=== PATIENT | male | born 1950 | race Caucasian/White ===

== ENCOUNTER 2016-10-08 11:44 | Observation (INO) | payer MEDICARE, OTHER ==
[~2016-10-08] VITALS: Ht 170.2 cm; Wt 78.4 kg
--- NOTE | ~2016-10-08 | HP ---
PATIENT'S NAME: CHUNG GUTIÉRREZ [facility] AGE: 66 Y [address] ROOM: [place] [address] LOCATION: GPCU ADMIT DATE: 10/08/2016 History & Physical DISCHARGE DATE: FAMILY PHYSICIAN: Asif Ingram MD ATTENDING PHYSICIAN: Asif Ingram DATE OF SERVICE: CHIEF COMPLAINT: Chest pain and "episode." HISTORY OF PRESENT ILLNESS: The patient is a 66-year-old gentleman, who was brought in by rescue unit after having an "episode at home." The patient states that he remembers cleaning out an area where they were going to get a new deep freeze tomorrow. States that he did not feel well and maybe a little bit of pain and just tired, so went to sit down and that is the last thing that he remembers. Per rescue unit and emergency room physicians, stated that he was unresponsive, had difficulty with speech, and his tongue protruded. Sounds like he was pretty unresponsive during this period of time. I am unaware of how many minutes that this took place. The emergency room physician stated that within 5 minutes of being in the emergency room, that all weakness, speech difficulty, and tongue abnormality totally resolved, and he was "100% normal thing" within 5 minutes. Since that time, he has not had any neurological abnormalities. States that he did have chest pressure, did have elevated blood pressure, that did respond nicely to nitroglycerin. The patient denies any headache or any residual symptoms. No loss of bladder. No tonic-clonic symptoms during any of this was witnessed. PAST MEDICAL HISTORY: Significant for: 1. Coronary artery disease, recently had stents placed by Dr. Guthrie 2 weeks ago. Has not had any chest pain until today since the stent placement. 2. Does have a history of chronic migraines with a questionable seizure disorder associated with this, but the patient really unable to explain. 3. Chronic neck pain. 4. Depression. 5. Erosive gastritis. 6. Reflux. 7. History of pancreatitis. 8. Mixed hyperlipidemia. 9. Ischemic vascular disease. 10. Type 2 diabetes. PAST SURGICAL HISTORY: PATIENT'S NAME: CHUNG GUTIÉRREZ [facility] AGE: 66 Y [address] ROOM: [place] [address] LOCATION: GPCU ADMIT DATE: 10/08/2016 History & Physical DISCHARGE DATE: FAMILY PHYSICIAN: Asif Ingram MD ATTENDING PHYSICIAN: Asif Ingram Includes appendectomy in 1987; cholecystectomy in 2005; EGD, last EGD showed erosive gastritis with focal duodenitis on September 05, 2015; hernia repair on December 14, 2014; left inguinal; and recent stent placement. SOCIAL HISTORY: Occasional alcohol, current caffeine, and former smoker. He is . CURRENT MEDICATIONS: 1. Aspirin 81 mg daily. 2. Lipitor 80 mg daily. 3. Lotensin 40 mg daily. 4. Coreg 6.25 mg twice daily. 5. Plavix 75 mg daily. 6. Neurontin 300 mg twice daily and 600 mg at bedtime. 7. [place] 10/325 two tablets at night time. 8. Levemir 45 units q.h.s. 9. Isordil 5 mg t.i.d. 10. Nitrostat p.r.n. 11. Protonix 40 mg daily. 12. Ambien 10 mg q.h.s. FAMILY HISTORY: Significant for hyperlipidemia and hypertension. REVIEW OF SYSTEMS: GENERAL: No recent weight loss or weight gain. No fevers. HEENT: Negative. Does wear glasses. Does have dentures. CARDIOVASCULAR: Did have the chest pressure, currently symptom free. PULMONARY: No shortness of breath. GI: No diarrhea, constipation, melena, or hematochezia. MUSCULOSKELETAL: Currently negative. PHYSICAL EXAMINATION: VITAL SIGNS: Temperature 97.9, respirations 16, O2 saturation 96% on room air, blood pressure 129/63, heart rate of 54. GENERAL: An alert male, in no acute distress. HEENT: Within normal limits. Mouth, moist mucous membranes. NECK: Supple with no lymphadenopathy. HEART: Regular rate and rhythm. LUNGS: Clear to auscultation bilaterally. ABDOMEN: Positive bowel sounds. Soft, nontender, nondistended. No masses present. MUSCULOSKELETAL: Negative. Neurovascularly is intact. Has no muscle weakness. No abnormalities. PATIENT'S NAME: CHUNG GUTIÉRREZ [facility] AGE: 66 Y [address] ROOM: [place] [address] LOCATION: GPCU ADMIT DATE: 10/08/2016 History & Physical DISCHARGE DATE: FAMILY PHYSICIAN: Asif Ingram MD ATTENDING PHYSICIAN: Asif Ingram LABORATORY DATA: EKG showed a normal sinus rhythm with no acute changes noted. CBC: White count of 6600, hemoglobin of 11.7. CMS: Glucose of 355, BUN 15, creatinine of 1.0, rest is stable. Cardiac enzymes are negative x2. ProBNP is 66. CRP is less than 0.29. TSH 4.050 and free T4 is normal at 0.80. Procalcitonin is negative. IMAGING DATA: Head CT was done, which showed no acute findings. No arterial lesion or stenosis. Chest x-ray was normal. ASSESSMENT: 1. Chest pressure with recent stent placement, unknown coronary artery disease. 2. Questionable "episode" unsure if this could be a seizure related to his migraine. Dr. Osorio was involved as they initially thought this was a stroke alert. He did not feel that it was stroke related or any concerns of stroke nor did Dr. Osorio feel that this was potential seizure. 3. Diabetes. Blood sugar was elevated at admission. We will continue with the Levemir as well as sliding scale. 4. Bradycardia. This will be monitored. The patient is on telemetry. Dr. Ingram to assume care tomorrow. MD EBONIE DAVISON/preml /[id number] D: [id number] T: [id number] HISTORY & PHYSICAL
--- NOTE | ~2016-10-08 | CATH ---
Cardiac Diagnostic + PCI Report Demographics Patient Name MARLA Lee Gender Male Date of 1950 Age 66 year(s) Patient Number [id number] Date of Study 10/09/2016 Visit Number [id number] Room Number G[address] [place] [id number] Ht 170.18 cm Wt 81.6 kg Referring Juan Jose Conner MD Primary Physician Physician Performing Efstratiou Secondary Physician Physician Fer Conner MD Diagnostic Efstratiou Assisting Physician Physician Fer Conner MD Interventional Efstratiou Physician Mold Maker [employer] Molds Physician Fer Conner MD Findings and Conclusions Diagnostic Findings and Conclusion Diffuse 3 vessel CAD Recent stent in proximal LAD is patent Severe distal stenosis of same vessel Diagnostic Recommendations PCI to distal LAD Interventional Findings and Conclusion successful [place] to distal LAD Interventional Recommendations DAPT risk factor optimization Procedure Description The patient was brought to the diagnostic cardiac catheterization-EP laboratory in the fasting, non-sedated state. Informed consent was obtained in the written and verbal form after the risks and benefits were explained. The patient had no further questions and agreed to proceed. The planned puncture-incision site(s) were shaved and prepped with ChloraPrep and draped in the usual sterile manner. Conscious sedation, supplemental oxygen, and pain control medications were delivered by a registered nurse under physician guidance. Surface ECG rhythm, blood pressure measurement, and pulse oximetry were monitored throughout the procedure. Arterial access. The access site was infiltrated with lidocaine. The vessel was entered with the Seldinger technique. A sheath was advanced into the vessel and used for catheter placement. Selective left coronary angiography. A catheter was advanced into the left coronary vessel ostium under Fluoroscopic guidance. Contrast was injected by hand. Images were obtained in multiple projections. Selective right coronary angiography. A catheter was advanced into the right coronary vessel ostium under fluoroscopic guidance. Contrast was injected by hand. Images were obtained in multiple projections. FFR measurement was performed. The vessel was entered with a guiding catheter. The FFR wire was normalized and then advanced across the lesion. Maximum hyperemia was achieved using adenosine. Stent Placement: A guiding catheter was used to intubate the vessel. A 0.14 wire was used to cross the lesion. A Drug Eluting Stent was placed. Post placement angiograms were performed. Arterial artery hemostasis was achieved. The patient was transferred to a regular nursing floor via cart accompanied by a nurse. The patient left the laboratory in stable condition. Diagnostic Cath Status: Urgent Interventional Cath Status: Urgent Procedure Procedure Type Diagnostic procedure:Angiography:, Coronary Angios PCI procedure:Drug Eluting Coronary Stent:, LAD, Additional Imaging:, FFR/iFR:, Initial Vessel Indications: Chest pain and Abnormal enzymes. The procedure was explained in detail to the patient. Risks, complications and alternative treatments were reviewed. Written consent was obtained. Medications Reviewed with Patient prior to Procedure. Angiographic Findings Dominance: Right Cardiac Arteries and Lesion Findings LMCA: Normal (0% Stenosis). LAD: Abnormal.40% ostial LAD, FFR 0.81, prox stent patent Diag 1 and 2 stent jailed Distal 80% FFR 0.64There is a previous stent on Prox LAD Proximal subsection showing wide patency. There is a previous stent on Mid LAD Mid subsection showing wide patency. Lesion on Prox LAD: Ostial.40% stenosis . Pre procedure MALCOLM III flow was noted. Devices used - Verrata Pressure Wire. Number of passes: 1. Lesion on Dist LAD: Distal subsection.80% stenosis 16 mm length reduced to 0%. Pre procedure MALCOLM II flow was noted. Post Procedure MALCOLM III flow was present. The guidewire cross was successful.A poor run off was present.The lesion was diagnosed as a moderate risk lesion.Culprit lesion. Devices used - Emerge Balloon 2.0 x 12. 1 inflation(s) to a max pressure of: 14 dashawn. - Promus Premier 2.25 x 16 Stent. 1 inflation(s) to a max pressure of: 11 dashawn. - NC Emerge Balloon 2.5 x 8. 1 inflation(s) to a max pressure of: 16 dashawn. LCx: Abnormal.25% ostial OM 40% prox Lesion on Prox CX: Ostial.25% stenosis . Lesion on 1st Ob Dipti: Proximal subsection.40% stenosis . RCA: Abnormal.mid stent 30% PL 20% PDA 30% ostialThere is a previous stent on Mid RCA Mid subsection showing diffuse ISR. Lesion on Mid RCA: Mid subsection.30% stenosis . Lesion on 1st RPL: Ostial.20% stenosis . Lesion on R PDA: Ostial.30% stenosis . Coronary Tree Procedure Data Procedure Date Date: 10/09/2016Start: 02:38 PMEnd: 03:39 PM Entry Locations - Retrograde Percutaneous access was performed through the Right Radial artery (Primary location). A 6 Fr sheath was inserted. Closure Comments: 15 cc air in r band by julianna. Procedure Medications Order and Administration + + + + + !Time !Medication !Dosage !Route ! + + + + + !10/09/2016 02:35 PM !Versed !1 mg !I.V. ! + + + + + !10/09/2016 02:37 PM !Fentanyl !50 mcg !I.V. ! + + + + + !10/09/2016 02:40 PM !Oxygen !2 l/min !NC ! + + + + + !10/09/2016 02:40 PM !Fentanyl !50 mcg !I.V. ! + + + + + !10/09/2016 02:41 PM !Radial Heparin (ACC_3) !5000 units !I.A. ! + + + + + !10/09/2016 02:41 PM !Radial Nitroglycerin !200 mcg !I.A. ! + + + + + !10/09/2016 02:41 PM !Radial Verapamil !1.5 mg !I.A. ! + + + + + !10/09/2016 02:46 PM !Oxygen !4 l/min !NC ! + + + + + !10/09/2016 02:49 PM !Oxygen !6 l/min !NC ! + + + + + !10/09/2016 03:00 PM !Heparin (ACC_3) !3000 units !I.V. bolus ! + + + + + !10/09/2016 03:05 PM !Adenosine (IV) !140 mcg/kg/min !I.V. drip ! + + + + + !10/09/2016 03:12 PM !Adenosine (IV) ! !I.V. drip ! + + + + + !10/09/2016 03:22 PM !Nitroglycerin !300 mcg !I.C. ! + + + + + Devices Used - A6 Fr. BS JR 4 Diag. Catheterwas used for:Right coronary angiography. - A6 Fr. BS JL 3.5 Diag. Catheterwas used for:Left coronary angiography. - A6 Fr. XBLAD 3.5 Guide Catheterwas used for:LAD Intervention. Contrast Material - Isovue 299261 ml Fluoroscopy Time: Diagnostic: 9:30 minutes. Total: 9:30 minutes. Fluoroscopy Dose: Diagnostic: 1395 mGy. Total: 1395 mGy. Estimated Blood Loss: 30 ml. Additional [facility] PCI Information PCI Indication:PCI for high risk Non-STEMI or unstable angina. Medical History Allergies - No known allergies. Risk Factors The patient risk factors include:prior PCI on 09/25/2019;peripheral arterial disease, physical activity, treated hypercholesterolemia, treated hypertension, family history of premature CAD, insulin-treated diabetes mellitus, last creatinine: 1 mg/dl, creatinine clearance: 85 ml/min, dyslipidemia and former tobacco use. Admission Data Admission Date: 10/08/2016 Admission Time: 02:49 PM Admit Source: Emergency department Insurance Payors: Medicare. Admission Medications + +------+------+---------+ + + + !Medication !Dosage!Times !Last !Last !Administered !Comments ! ! ! !Per !Delivery !Delivery ! ! ! ! ! !Day !Date !Time ! ! ! + +------+------+---------+ + + + !Aspirin (any)! ! ! ! !Yes ! ! + +------+------+---------+ + + + !Statin (any) ! ! ! ! !Yes ! ! + +------+------+---------+ + + + !Beta Evelyn ! ! ! ! !Yes ! ! !(any) ! ! ! ! ! ! ! + +------+------+---------+ + + + !Clopidogrel ! ! ! ! !Yes ! ! + +------+------+---------+ + + + !PAVEL Inhibitor! ! ! ! ! ! ! !(any) ! ! ! ! ! ! ! + +------+------+---------+ + + + !Nitrates (iv ! ! ! ! ! ! ! !or buccal) ! ! ! ! ! ! ! + +------+------+---------+ + + + Clinical Evaluation Leading to Procedure - The patient's CAD presentation was assessed as: Unstable angina. - The patient's anginal syndrome during the past two weeks was assessed as: Class IV according to the [place] Cardiovascular Society Classification System (CCS). Anti-anginal medications were prescribed during the past two weeks. The medications are: Beta Blockers and Long Acting Nitrates. - The patient's CAD presentation was assessed as: Unstable angina. - The patient's anginal syndrome during the past two weeks was assessed as: Class IV according to the [place] Cardiovascular Society Classification System (CCS). Anti-anginal medications were prescribed during the past two weeks. The medications are: Beta Blockers and Long Acting Nitrates. VA LV function assessed as:Normal. Ejection Fraction - 09/22/2016 - Method: LV gram. EF%: 55. LVA Segment Contractility 1 - Normal 3 - Mild 5 - Severe 7 - Dyskinesis hypokinesis hypokinesis 2 - 4 - Moderate 6 - Akinesis 8 - Aneurysm Hypokinesis hypokinesis Snapshots Hemodynamics Condition: Rest O2 Consumption: Estimated: 212.91Heart Rate: 53 bpm Pressures (mmHg) +-----+ + !Site !Pressure ! +-----+ + !AO !118/67 (90) ! +-----+ + !AO !155/74 (108) ! +-----+ + Shunts Oxygen Values O2 Capacity 159.12 O2 Consumption 212.91 Discharge Data Discharge Date: 10/10/2016 Hospital Status: Inpatient Signatures dtt: Manjinder Mendoza dtd: 10/09/16 1438 Physician Self Edit
--- NOTE | ~2016-10-08 | ER ---
PATIENT'S NAME: CHUNG GUITÉRREZ [facility] AGE: 66 Y [address] ROOM: [place] [address] LOCATION: GPCU ADMIT DATE: 10/08/2016 ER/Outpatient Report DISCHARGE DATE: FAMILY PHYSICIAN: Asif Ingram MD ATTENDING PHYSICIAN: Asif Ingram CHIEF COMPLAINT: Unresponsive episode. HISTORY OF PRESENT ILLNESS: The patient arrives by EMS. EMS was contacted to evaluate the patient at home after he was found unresponsive. Last known normal at 7:00 a.m. The patient was supposedly unresponsive and barely breathing for first responders. He began to become more responsive with some stimulation. He was evaluated by our paramedics en route and was continuing to improve, but had no purposeful movement and withdrawal from pain. They were concerned for a stroke and brought him here. He recently had a stent placed by Dr. Lozano at [facility]; however, because of the concern for stroke, they diverted here for further evaluation. The patient's primary care is Dr. Huizar. He is otherwise without any other issues per EMS. He does have anticoagulation on board for his recent stent. Report, he did take some nitroglycerin for chest discomfort this morning, which he has not had for a while according to family. No other acute issues. The exact time of onset is unknown. PAST MEDICAL HISTORY: As documented on the record and have been reviewed by me. SOCIAL HISTORY: As documented on the record and have been reviewed by me. MEDICATIONS: As documented on the record and have been reviewed by me. ALLERGIES: DOCUMENTED ON THE RECORD AND HAVE BEEN REVIEWED BY ME. REVIEW OF SYSTEMS: All systems reviewed and negative except as noted in the HPI. PHYSICAL EXAMINATION: VITAL SIGNS: Blood pressure 194/82, pulse is 60, respiratory rate is 16, temperature 97.2, SpO2 is 98% on 2 L nasal cannula, weight is 82.7 kilos. Pain is unclear. The patient does have a grimace. NEURO: The patient is obtunded and not verbal. He attempts to open his eyes, but cannot do so and cannot control his eye movements. The tongue is PATIENT'S NAME: CHUNG GUTIÉRREZ [facility] AGE: 66 Y [address] ROOM: [place] [address] LOCATION: GPCU ADMIT DATE: 10/08/2016 ER/Outpatient Report DISCHARGE DATE: FAMILY PHYSICIAN: Asif Ingram MD ATTENDING PHYSICIAN: Asif Ingram protruding from the mouth, but is not edematous. He does attempt to verbalize, but is garbled. He will squeeze hands and give thumbs up on both sides. He has no pronator drift and endorses normal sensation bilateral. He has symmetric strength of the lower extremities and there is no drift as well. I could not demonstrate rapid alternating movements for him initially. There was no tonic-clonic like motion activity appreciated. The eyes were deviated up into the left, but he would try to move them back to center, but it was difficult for him. No obvious asymmetry and the protuberant tongue was not deviated. HEENT: Normocephalic and atraumatic. Eyes: Pupils were minimally reactive and 3 mm bilateral. Extraocular movements were difficult to elicit. The oropharynx is dry. The tongue is protuberant, but not edematous. There is no stridor. NECK: Supple. The trachea is midline. CHEST: Heart is regular rate and rhythm with no obvious murmurs. LUNGS: Grossly clear to auscultation throughout. BACK: Nontender to palpation. EXTREMITIES: Warm and well perfused with no deformities or edema. SKIN: Warm, dry, and intact. LABORATORY DATA AND X-RAYS: CT and CTA of the head were unremarkable per Radiology. EKG is concerning for possible prior ischemia with Q-waves in lead III, and not in contiguous leads with no evidence of acute ischemia. There is slight ST-segment elevation in the precordial leads, V2 and V3, measuring 1 cm, but does not meet criteria. No comparison available. Unchanged on prior EKG. Accu-Chek is 349. Initial troponin is below threshold, repeat is as well. CK-MB on repeat is 1.5, CPK is 130. WBCs are 6.6, hemoglobin 11.7, and platelets of 240. INR is 1.0, procalcitonin is below threshold. Sodium is 140, potassium 4.4, chloride 109, CO2 is 22, BUN is 15, creatinine 1.0. GFR is greater than 60. LFTs unremarkable. CPK 139, CK-MB is 1.7. CRP is below threshold. Free T4 is 0.8. TSH is 4.05. ProBNP is 66. Calculated anion gap is 9. Serum phosphorus is 2.4. IMPRESSION: 1. Unresponsive episode, unclear etiology. 2. Persistent chest pain, status post stenting. EMERGENCY DEPARTMENT COURSE: The patient was evaluated as above. Stroke alert was called based on field report. Dr. Osorio, neurologist, evaluated the patient based on his current presentation, rapid improvement, and in fact, complete return to baseline with no other neurologic symptoms. I do not think this is a stroke or seizure. His time course does not fit either of them. Unsure as to the exact etiology. The patient did continue to have chest pain. He was given nitroglycerin with PATIENT'S NAME: CHUNG GUTIÉRREZ [facility] AGE: 66 Y [address] ROOM: [address] [place], [place] [id number] LOCATION: GPCU ADMIT DATE: 10/08/2016 ER/Outpatient Report DISCHARGE DATE: FAMILY PHYSICIAN: Asif Ingram MD ATTENDING PHYSICIAN: Asif Ingram A marked improvement in his blood pressures. He remained otherwise stable. He did continue to have chest pain and was hesitant to take more nitroglycerin, but with his active chest pain and recent stenting, I am concerned regarding his safety for discharge. I have contacted Dr. Mendoza, correctional supervisor, and we will bring him in for observation. Contacted Dr. Huizar, the admitting physician, for the patient's primary care physician. He will be brought into the hospital for observation and chest pain rule out in the setting of this unusual neurologic episode that, I believe, is probably related to stress. He has otherwise been stable in the emergency department and has, in fact, returned completely to his baseline with no neurologic symptoms, no speech impediments, clear presentation, but he does not have a recall of the events that happened previously. MD KEISHA WINTERS/su /[id number] d: 10/08/16 2321 t: 03/06/17 1054, OUTPATIENT REPORT
--- NOTE | ~2016-10-08 | CON ---
PATIENT'S NAME: CHUNG GUTIÉRREZ [facility] AGE: 66 Y [address] ROOM: [id number] [place], [place] [address] LOCATION: GPCU ADMIT DATE: 10/08/2016 Consultation DISCHARGE DATE: 10/10/2016 FAMILY PHYSICIAN: Asif Ingram MD ATTENDING PHYSICIAN: Asif Ingram DATE OF CONSULTATION: 10/09/2016 REFERRING PHYSICIAN: Manjinder Mendoza MD REASON FOR CARDIOLOGY CONSULT: Chest pain. HISTORY OF PRESENT ILLNESS: This is a 66-year-old male admitted with an unresponsive episode in which he had difficulty with speech. He was transferred to the [facility] by Ambulance service and he continued to be unresponsive for a short time, but then quickly returned to a baseline with normal neurologic function. Upon questioning of the patient, he admits around the episode, he did have some familiar chest pain. He last experienced chest pain of this type prior to stent placement about [address] Guthrie. At the time of this consult, he is resting comfortably in bed, eating breakfast, and is pain free. Overall, he is disoriented to the actual events surrounding his unresponsive episode. But overall, he denies any recent changes to his health over the last two weeks, status post stent. He also denies headache, dizziness, nausea, vomiting, diarrhea or palpitations. EMS noted there was no notation of tonic-colonic muscle movement or loss of bowel or bladder during the episode. PAST MEDICAL HISTORY: 1. Coronary artery disease with 2 previous stents placed about 7 years ago to his RCA and LAD and most recently, had another LAD stent placed about [address] Guthrie. 2. Hypertension. 3. Hyperlipidemia. 4. Chronic migraines. 5. Chronic neck pain. 6. Depression. 7. GERD and gastritis with a previous GI bleed. 8. History of pancreatitis. 9. Peripheral vascular disease. 10. Seizure disorder related to his migraines. 11. Diabetes mellitus type 2. PAST SURGICAL HISTORY: 1. Coronary artery stenting. PATIENT'S NAME: CHUNG GUTIÉRREZ [facility] AGE: 66 Y [address] ROOM: [id number] [place], [place] [address] LOCATION: GPCU ADMIT DATE: 10/08/2016 Consultation DISCHARGE DATE: 10/10/2016 FAMILY PHYSICIAN: Asif Ingram MD ATTENDING PHYSICIAN: Asif Ingram 2. Appendectomy. 3. Cholecystectomy. 4. EGD. 5. Left inguinal hernia repair. FAMILY HISTORY: The patient's father due to a myocardial infarction, but also had an unknown cancer. SOCIAL HISTORY: The patient is a former cigarette smoker. He smoked for a total of 35 years and quit smoking in the year 1999. He denies alcohol or illicit drug use. CURRENT MEDICATIONS: 1. Nitroglycerin IV as needed for chest pain. 2. Ambien 10 mg p.o. daily in the evening. 3. Aspirin 81 mg p.o. daily. 4. Coreg 6.25 mg p.o. twice daily. 5. Isordil 5 mg p.o. three times daily. 6. Lipitor 80 mg p.o. daily in the evening. 7. Lotensin 40 mg p.o. daily. 8. Neurontin 300 mg p.o. twice daily in the morning and at noon. 9. Neurontin 600 mg p.o. daily in the evening. 10. Plavix 75 mg p.o. daily. 11. Protonix 40 mg p.o. daily. 12. Levemir 45 units subcu daily in the evening. 13. NovoLog subcu on a mild sliding scale per a.c. and at bedtime Accu- Cheks. MEDICATION ALLERGIES: No known medication allergies. REVIEW OF SYSTEMS: Pertinent positive review of systems listed in the HPI. All other review of systems evaluated and negative. DIAGNOSTICS: CMS evaluation shows sodium of 140, potassium 4.4, BUN of 15, creatinine 1.0, glucose of 355. He has a proBNP of 66, a TSH of 4.05, and a free T4 of 0.8. He has a magnesium of 2.1. Lipid evaluation shows a total cholesterol of 138, triglycerides 193, HDL of 44 and an LDL of 56. Cardiac enzyme trend shows a CPK of 139, then 130, then 119, then 105. CK-MB of 1.7, then 1.5, then 1.5, and finally 1.0, and a troponin I of less than 0.04 x 5 values. PHYSICAL EXAMINATION: PATIENT'S NAME: CHUNG GUTIÉRREZ [facility] AGE: 66 Y [address] ROOM: [id number] [place], [place] [address] LOCATION: GPCU ADMIT DATE: 10/08/2016 Consultation DISCHARGE DATE: 10/10/2016 FAMILY PHYSICIAN: Asif Ingram MD ATTENDING PHYSICIAN: Asif Ingram VITAL SIGNS: Temperature 97.7, pulse 54, respirations 15, blood pressure 181/91, O2 saturation 96% on room air. The patient weighs 81.6 kg. SKIN: [place], warm, and dry. EYES: Sclerae clear. No xanthelasmas ENT: Oral mucosa is pink and moist. No jugular venous distention or carotid bruits. CHEST: Respirations are even and unlabored. Lungs are clear to auscultation. HEART: Regular rate and rhythm. Normal S1, S2. Does have intermittent S4 noted. ABDOMEN: Soft and nontender. MUSCULOSKELETAL: Gait is normal. EXTREMITIES: Peripheral pulses palpable. No clubbing or cyanosis noted. Does have trace lower extremity edema present. PSYCHIATRIC: Alert and oriented. Mood and affect are appropriate. IMPRESSION AND PLAN: Per Dr. Mendoza: 1. Chest pain of familiar quality as his previous events prior to stenting. He noted this during and after the episode of unresponsiveness. His cardiac enzymes are currently negative. Full review of his cardiac history from [facility] shows a history of 3 stents, the first being about 8 to 9 years ago and the last one being placed about 2 weeks ago with noted slow flow after the deployment. The patient will need a repeat coronary artery angiography for full evaluation of anatomy stent placement and coronary blood flow. 2. Unresponsiveness with tongue protrusion and difficult speech. Currently awaiting a Neurology evaluation as of this dictation. 3. Coronary artery disease with a history of stenting. Currently on guideline-directed medical therapy with aspirin, beta-shayla, and statin. He is also on long-acting nitrate. 4. Hypertension. We will continue his home medications and continue to monitor closely. 5. Diabetes mellitus. Thank you for this consult. We will continue to monitor, evaluate, and treat as appropriate. Thank you for allowing [facility] to interact in the care of this patient. MAGAN MICHAUDIN EFSTRATIOU, MD DEH/modl PATIENT'S NAME: CHUNG GUTIÉRREZ [facility] AGE: 66 Y [address] ROOM: [place] [address] LOCATION: GPCU ADMIT DATE: 10/08/2016 Consultation DISCHARGE DATE: 10/10/2016 FAMILY PHYSICIAN: Asif Ingram MD ATTENDING PHYSICIAN: Asif Ingram /[id number] d: 10/09/161954 t: 10/12/16 1431, CONSULTATION REPORT
[~2016-10-08 11:44] MED LIST changes: -NORVASC5 MG PO
[2016-10-08 12:19] LABS: BASOPHIL # 0.1 K/uL (0.0-0.2); BASOPHIL % 0.8 %; EOSINOPHIL # 0.4 K/uL (0.0-0.5); EOSINOPHIL % 6.4 %; HEMATOCRIT 35.8 % (37.0-53.0); HEMOGLOBIN 11.7 g/dL (11.0-16.0); IMMATURE GRANULOCYTE # 0.1 K/uL (0.0-0.3); IMMATURE GRANULOCYTE % 1.7 %; LYMPHOCYTE # 2.2 K/uL (0.8-4.0); MCHC 32.7 gm/dL (32.0-36.5); MONOCYTE # 0.7 K/uL (0.0-1.0); MONOCYTE % 11.1 %; MPV 8.8 fl (9.4-12.4); NRBC % 0 /100WBC (0-0.00); PLATELET COUNT 240 K/uL (150-450); RBC 3.77 M/uL (3.50-5.50); RDW-CV 12.7 % (11.9-14.6); WBC 6.6 K/uL (4.0-11.0)
[2016-10-08 12:26] LABS: PROTIME 9.9 SECONDS (9.6-11.1); PTT 25 SECONDS (25-32)
[2016-10-08 12:42] LABS: ALBUMIN 3.4 gm/dL (3.5-5.0); ALK PHOS 61 IU/L (33-138); ALT 14 IU/L (12-78); ANION GAP 13.4 (10.0-19.0); AST 10 IU/L (10-40); BLOOD UREA NITROGEN 15 mg/dL (6-24); CHLORIDE 109 mMol/L (96-110); CO2 22 mMol/L (22-32); CPK 139 IU/L (35-332); ESTIMATED GFR (MDRD EQUATION) > 60; POTASSIUM 4.4 mMol/L (3.7-5.1); SODIUM 140 mMol/L (135-145); TOTAL BILIRUBIN 0.3 mg/dL (0.0-1.5); TOTAL PROTEIN 6.4 g/dL (6.0-8.4)
[2016-10-08 14:08] LABS: CPK 130 IU/L (35-332)
[2016-10-08 17:22] LABS: MAGNESIUM 2.1 mg/dL (1.3-2.6)
--- NOTE | 2016-10-08 18:59 | NUR ---
PATIENT ADMITTED FROM ER AT 15:15 PER CART W/ ER NURSE. SBP 120'S, HR 50'S, SATS MID 90'S ON RA. PATIENT STATED NO C/O PAIN AT THAT TIME. NEURO ASSESSMENT BACK TO BASELINE FROM REPORT, PATIENT FOLLOWING ALL COMMANDS AND ANSWERING ORIENTATION QUESTIONS. KNEW MONTH AND YEAR, DID NOT REMEMBER DATE. DR Zayda LINDER NOTIFIED OF ADMISSION FOR ORDERS.
--- NOTE | 2016-10-08 19:01 | NUR ---
PATIENT ADMITTED FROM ER THIS AFTERNOON. DR Zayda LINDER ROUNDED. REPORT FROM E.R. NURSE THAT E.R. PHYSICIAN CONSULTED DR BARR. NITRO GTT STARTED AT 5 MICS PER [facility] PROTOCOL.
[2016-10-08 20:42] LABS: CPK 119 IU/L (35-332)
[2016-10-09 02:44] LABS: CPK 105 IU/L (35-332)
--- NOTE | 2016-10-09 04:33 | NUR ---
Significant Event: A/O x3, neuro checks all wnl, patient cannot remember episode that brought him into hospital, Nitro gtt at 5mcg/min for chest pain, has had no c/o pain since gtt started, SBP 120-150s, HR 50s, RA, patient slept all night, need UA Follow up: continue to monitor
[2016-10-09 06:44] LABS: BILIRUBIN URINE NEGATIVE (NEGATIVE); BLOOD URINE NEGATIVE /UL (NEGATIVE); COLOR URINE YELLOW (YELLOW); GLUCOSE URINE 1000 mg/dL (NEGATIVE); KETONE URINE NEGATIVE (NEGATIVE); LEUKOCYTES URINE NEGATIVE /UL (NEGATIVE); NITRITE URINE NEGATIVE (NEGATIVE); PROTEIN URINE NEGATIVE (NEGATIVE); SPEC GRAVITY URINE 1.015 (1.003-1.035); TURBIDITY URINE CLEAR (CLEAR); UROBILINOGEN URINE NORMAL (NORMAL)
[2016-10-09 08:44] LABS: CPK 112 IU/L (35-332)
[2016-10-09 11:07] LABS: CPK 107 IU/L (35-332)
--- NOTE | 2016-10-09 11:24 | NUR ---
Intoduced self and role of care management to patient. He lives with his in [place]. He states that he is able to do all his own ADL's. He states that his family assists as needed. He plans on returning home on discharge. He denies any needs at this time. Will continue to follow.
--- NOTE | 2016-10-09 15:05 | NUR ---
D:Patient left for mobile home laborer per bed with mobile home laborer RN's at 1420. Patient is alert and oreintated. Has voided. No change in assessment. Has Nitro infusing at 5 mcg/min. Has had no chest pain. Has been NPO since 0900.
[2016-10-09 17:03] LABS: CPK 107 IU/L (35-332)
--- NOTE | 2016-10-09 18:30 | NUR ---
D:Patient returned to unit at 1555. Had stent to distal LAD per right radial. Had R band to right wrist, 15 ml in it. Had small hematoma, remains slightly swollen and tender, but is soft. NS infusing at 100 ml/hr, and Nitro continues at 5 mcg/min. P:Monitor post stent, and remove R band
--- NOTE | 2016-10-09 18:40 | NUR ---
Significant Event:Patient had stent to distal LAD. Has had no chest pain. Right radial has R band to it, 15 ml air. Has NS infusing at 100 ml/hr and Nitro at 5 mcg.min. Patient returned to room at 1555. Follow up:Monitor post cath, home tomorrow
--- NOTE | 2016-10-10 04:15 | NUR ---
Significant Event: A/O, SBP 120-150s, Nitro gtt at 5mcg, HR 60s, RA, R) radial cath site remains slightly swollen but no changes since return from laboratory technician, r-band off at 2150, bandaid and coban to wrist, NS continues at 100 until for 1500mls, up SBA to bathroom, no c/o pain Follow up: home today?
[2016-10-10 04:52] LABS: ALBUMIN 2.9 gm/dL (3.5-5.0); ALK PHOS 54 IU/L (33-138); ALT 15 IU/L (12-78); AST 9 IU/L (10-40); BLOOD UREA NITROGEN 12 mg/dL (6-24); CALCIUM 7.6 mg/dL (8.5-10.5); CHLORIDE 112 mMol/L (96-110); CO2 21 mMol/L (22-32); CREATININE 0.7 mg/dL (0.6-1.3); ESTIMATED GFR (MDRD EQUATION) > 60; SODIUM 142 mMol/L (135-145); TOTAL PROTEIN 5.9 g/dL (6.0-8.4)
[2016-10-10 04:55] LABS: TOTAL BILIRUBIN 0.5 mg/dL (0.0-1.5)
[2016-10-10] MEDS ORDERED: NORVASC5 MG PO (09:59)
--- NOTE | 2016-10-10 13:38 | NUR ---
DISCHARGE: A/O X3. UP AD SNEHA. DENIES PAIN. RIGHT RADIAL SITE WITH PROXIMAL ECCHYMOSIS PRESENT, MARKED, NO CHANGE. SITE SOFT, SLIGHTLY TENDER. PIV'S X2 DISCONTINUED. FOLLOW-UP APPOINTMENT DISCUSSED. NEW MEDICATIONS AND MED CHANGES REVIEWED. DISCHARGE INSTRUCTIONS R/T NEW MEDS, DIET CHANGES AND RADIAL SITE CARE REVIEWED AND SENT WITH PATIENT. NO FURTHER QUESTIONS. TAKEN TO [facility] BY WHEELCHAIR. PT'S DAUGHTER HERE TO TRANSPORT HIM HOME. DISCHARGE @ 1230.
== END 2016-10-10 12:30 | disposition disaster alternative care site (69) ==
LOC: GMED 11:44 → GPCU 14:49
PROVIDERS: Emergency Medicine; Family Medicine; Internal Medicine Cardiovascular Disease; Internal Medicine Interventional Cardiology; ADMIT Family Medicine
PROC: 027034Z Dilation of Coronary Artery, One Artery with Drug-eluting Intraluminal Device, Percutaneous Approach (ICD-10-PCS; principal; 2016-10-09)
PROC: B2111ZZ Fluoroscopy of Multiple Coronary Arteries using Low Osmolar Contrast (ICD-10-PCS; principal; 2016-10-09)
PROC: 4A033BC Measurement of Arterial Pressure, Coronary, Percutaneous Approach (ICD-10-PCS; principal; 2016-10-09)
DX: I25.10 Atherosclerotic heart disease of native coronary artery without angina pectoris (principal); I10 Essential (primary) hypertension; E11.9 Type 2 diabetes mellitus without complications; E78.2 Mixed hyperlipidemia; M54.2 Cervicalgia; G89.29 Other chronic pain; F32.9 Major depressive disorder, single episode, unspecified; K21.9 Gastro-esophageal reflux disease without esophagitis; K29.60 Other gastritis without bleeding; G43.909 Migraine, unspecified, not intractable, without status migrainosus; Z95.5 Presence of coronary angioplasty implant and graft; Z87.891 Personal history of nicotine dependence; Z79.02 Long term (current) use of antithrombotics/antiplatelets; Z79.82 Long term (current) use of aspirin; Z79.4 Long term (current) use of insulin; Z79.891 Long term (current) use of opiate analgesic; Z79.899 Other long term (current) drug therapy; I73.9 Peripheral vascular disease, unspecified
CPT/HCPCS: C1725; C1769; C1874; C1887; C1894; C9600; G0378; J0153; J1644; J2250; J3010; J7030

== ENCOUNTER → 2016-10-08 | Outpatient (CLI) | payer MEDICARE, OTHER ==
[~2016-10-08] MED LIST: AMBIEN10 MG PO; ASPIRIN EC81 MG PO; COREG6.25 MG PO; GABAPENTIN300 MG PO; ISORDIL10 MG PO; LEVEMIR FL100 UNIT/1 SUB-Q; LIPITOR80 MG PO; LOTENSIN40 MG PO; NEURONTIN300 MG PO; NITROSTAT0.4 MG SL; NORCO 10-325 T1 EACH PO; NORVASC5 MG PO; PLAVIX75 MG PO; PROTONIX40 MG PO
== END | disposition disaster alternative care site (69) ==
LOC: GAMB 11:04
DX: I63.9 Cerebral infarction, unspecified (principal); T88.53XD Unintended awareness under general anesthesia during procedure, subsequent encounter; S29.9XXA Unspecified injury of thorax, initial encounter; R07.9 Chest pain, unspecified; R47.01 Aphasia; E11.9 Type 2 diabetes mellitus without complications; Z79.4 Long term (current) use of insulin; Z79.891 Long term (current) use of opiate analgesic; Z79.899 Other long term (current) drug therapy; X58.XXXA Exposure to other specified factors, initial encounter

== ENCOUNTER 2016-12-16 11:18 | Emergency (ER) | payer MEDICARE, OTHER ==
--- NOTE | ~2016-12-16 | ER ---
PATIENT'S NAME: CHUNG GUTIÉRREZ [facility] AGE: 66 Y [address] ROOM: [place] [address] LOCATION: [facility] ADMIT DATE: 12/16/2016 ER/Outpatient Report DISCHARGE DATE: 12/16/2016 FAMILY PHYSICIAN: Asif Ingram MD ATTENDING PHYSICIAN: Ruperto Lawson CHIEF COMPLAINT: Slurred speech and difficulty driving and walking. HISTORY OF PRESENT ILLNESS: Around 9 o'clock this morning, the patient was pulled over for erratic driving. The officers on scene did call the ambulance. The ambulance crew found no acute abnormalities, but did recommend coming into the emergency department. The patient refused at that time. He was brought in later by family. They state that he just isn't right. The patient states he just does not feel well. He denies any particular weakness, numbness, dizziness, or other concerning signs or symptoms. He does have an extensive cardiac history. He has diabetes and heart disease. He states that he has some chronic pain issues, but no acute new or unusual chest pain, or headaches today, but he does have some of his baseline chest discomfort and headache. PAST MEDICAL HISTORY: Documented in the record and reviewed by me. SOCIAL HISTORY: Documented in the record and reviewed by me. MEDICATIONS: Documented in the record and reviewed by me. ALLERGIES: DOCUMENTED IN THE RECORD AND REVIEWED BY ME. REVIEW OF SYSTEMS: All systems were reviewed and negative except as noted in the HPI. PHYSICAL EXAMINATION: VITAL SIGNS: Blood pressure 157/70, pulse 54, respiratory rate is 17, temperature 97.6, and SpO2 is 95% on room air. GENERAL: Age-appropriate male in no obvious pain or distress. Resting comfortably on exam table. NEUROLOGIC: The patient is awake, he is alert. GCS is 15. There are no speech abnormalities appreciated. Thought processes are clear and coherent. He has no cranial nerve deficits. No tongue deviation. Eyes are PERRL. Extraocular movements are intact with no nystagmus. The patient has no PATIENT'S NAME: CHUNG GUTIÉRREZ [facility] AGE: 66 Y [address] ROOM: [place] [address] LOCATION: [facility] ADMIT DATE: 12/16/2016 ER/Outpatient Report DISCHARGE DATE: 12/16/2016 FAMILY PHYSICIAN: Asif Ingram MD ATTENDING PHYSICIAN: Ruperto Lawson pronator drift. He has symmetric 4/5 strength in all extremities. He has no drift to the lower extremities. He has no problems with past pointing or rapid alternating movements or heel to lemons. No obvious detectable neurological deficits on exam. HEENT: Normocephalic and atraumatic. The eyes are PERRL. The oropharynx is clear. NECK: Supple. The trachea is midline. CHEST: Heart is regular rate and rhythm with no murmurs. LUNGS: Clear to auscultation bilaterally with no rhonchi, wheezes, or rales. ABDOMEN: Soft, nontender, nondistended. No rebound or guarding. BACK: Nontender to palpation throughout. No CVA tenderness. EXTREMITIES: Warm and well perfused with no obvious abnormalities. SKIN: Warm, dry, and intact. LABORATORY DATA AND IMAGING STUDIES: Labs and X-rays: A head CT was obtained and negative per Radiology. Chest x- ray, reviewed and negative per my read. Radiology opinion pending. Initially repeat EKGs were obtained with no significant abnormalities and no significant changes. Labs; urinalysis is without evidence of infection. There is glucosuria noted. CMS is notable for no significant abnormalities. Has slightly low CO2 at 21. Renal function and hepatobiliary function are appropriate. Initial and repeat troponins remain below threshold. CRP is below threshold. ProBNP is 141, free T4, and TSH were 0.8 and 3.86 respectively. ABG; pH 7.43, pCO2 is 34, pO2 is 83, and HC03 is 22.6 on room air. Lactate is 0.9. INR is 0.95. CBC is without abnormality. IMPRESSION: Generalized malaise with unclear etiology. EMERGENCY DEPARTMENT COURSE: The patient was seen and evaluated. He stated that he has had some chest pain, some discomfort, and a headache intermittently. He states there is nothing new about his symptoms other than that they are present today. He has had all of this symptoms before except for the generalized weakness. I attempted to exclude stroke which based on his exam and a negative head CT make stroke including bleed extremely unlikely. No focal neurological deficits. The patient has serial troponins and EKGs which are reassuring. He does have some risk factors for heart disease. He stated that he was overall feeling better, but his headache was getting worse so he is given Tylenol. This did improve his symptoms. The patient was able to ambulate without any difficulty and was otherwise feeling "okay" at that time. As there are no obvious findings at this time and the patient appears to be doing well, we PATIENT'S NAME: CHUNG GUTIÉRREZ [facility] AGE: 66 Y [address] ROOM: [place] [address] LOCATION: [facility] ADMIT DATE: 12/16/2016 ER/Outpatient Report DISCHARGE DATE: 12/16/2016 FAMILY PHYSICIAN: Asif Ingram MD ATTENDING PHYSICIAN: Ruperto Lawson will discharge him to home with instructions to return immediately if worse. All questions were answered, and the patient was discharged. MD KEISHA WINTERS/modl /[id number] d: 12/17/16 1517 t: 12/26/16 1741, OUTPATIENT REPORT
[2016-12-16 11:48] LABS: BASOPHIL % 0.6 %; EOSINOPHIL # 0.3 K/uL (0.0-0.5); EOSINOPHIL % 4.2 %; HEMATOCRIT 37.1 % (37.0-53.0); HEMOGLOBIN 12.2 g/dL (11.0-16.0); IMMATURE GRANULOCYTE # 0.1 K/uL (0.0-0.3); IMMATURE GRANULOCYTE % 0.8 %; LYMPHOCYTE # 2.2 K/uL (0.8-4.0); LYMPHOCYTE % 34.7 %; MCH 30.8 pg (27.0-34.0); MCHC 32.9 gm/dL (32.0-36.5); MCV 93.7 fl (83.0-98.0); MONOCYTE # 0.7 K/uL (0.0-1.0); MONOCYTE % 10.7 %; MPV 8.8 fl (9.4-12.4); NEUTROPHIL # (ANC) 3.1 K/uL (1.4-9.0); NRBC % 0 /100WBC (0-0.00); PLATELET COUNT 266 K/uL (150-450); RBC 3.96 M/uL (3.50-5.50); RDW-CV 12.2 % (11.9-14.6); WBC 6.3 K/uL (4.0-11.0)
[2016-12-16 11:56] LABS: INR - (THERAPEUTIC) 0.95 (0.92-1.07); PTT 26 SECONDS (25-32)
[2016-12-16 12:09] LABS: BICARBONATE 22.6 mmol/L (18.0-23.0); LACTATE 0.9 mEq/L (0.50-1.60); PCO2 34 mmHg (35-45); PO2 83 mmHg (80-90)
[2016-12-16 12:28] LABS: ALBUMIN 3.4 gm/dL (3.5-5.0); ALK PHOS 64 IU/L (33-138); ALT 29 IU/L (12-78); ANION GAP 14.5 (10.0-19.0); AST 22 IU/L (10-40); BLOOD UREA NITROGEN 11 mg/dL (6-24); CALCIUM 7.7 mg/dL (8.5-10.5); CHLORIDE 110 mMol/L (96-110); CO2 21 mMol/L (22-32); CREATININE 0.8 mg/dL (0.6-1.3); ESTIMATED GFR (MDRD EQUATION) > 60; POTASSIUM 4.5 mMol/L (3.7-5.1); SODIUM 141 mMol/L (135-145); TOTAL BILIRUBIN 0.5 mg/dL (0.0-1.5); TOTAL PROTEIN 6.5 g/dL (6.0-8.4)
[2016-12-16 13:25] LABS: BLOOD URINE NEGATIVE /UL (NEGATIVE); COLOR URINE YELLOW (YELLOW); GLUCOSE URINE 1000 mg/dL (NEGATIVE); KETONE URINE NEGATIVE (NEGATIVE); LEUKOCYTES URINE NEGATIVE /UL (NEGATIVE); NITRITE URINE NEGATIVE (NEGATIVE); PROTEIN URINE 15 mg/dL (NEGATIVE); SPEC GRAVITY URINE 1.025 (1.003-1.035); TURBIDITY URINE CLEAR (CLEAR); UROBILINOGEN URINE 1 mg/dL (NORMAL)
[2016-12-16 13:30] LABS: BACTERIA URINE NEGATIVE (NEGATIVE); EPITHELIAL URINE 0-2 #/HPF (NEGATIVE); MUCUS URINE 2+ (NEGATIVE); RBC URINE RARE #/HPF (NEGATIVE); WBC URINE RARE #/HPF (NEGATIVE)
[2016-12-16 14:39] LABS: CPK 124 IU/L (35-332)
== END 2016-12-16 15:02 | disposition disaster alternative care site (69) ==
LOC: GMED 11:18
PROVIDERS: Emergency Medicine
DX: R53.81 Other malaise (principal); E11.9 Type 2 diabetes mellitus without complications; I10 Essential (primary) hypertension; K21.9 Gastro-esophageal reflux disease without esophagitis; G90.50 Complex regional pain syndrome I, unspecified; Z79.82 Long term (current) use of aspirin; Z79.899 Other long term (current) drug therapy; Z87.442 Personal history of urinary calculi; Z98.890 Other specified postprocedural states; Z79.4 Long term (current) use of insulin

== ENCOUNTER → 2016-12-16 | Emergency (ER) | payer MEDICARE, OTHER ==
[~2016-12-16] MED LIST changes: +NORVASC5 MG PO
== END | disposition disaster alternative care site (69) ==
LOC: GAMB 09:51
DX: R41.82 Altered mental status, unspecified (principal); E10.9 Type 1 diabetes mellitus without complications; R41.0 Disorientation, unspecified

== ENCOUNTER → 2017-03-08 | Outpatient (CLI) | payer MEDICARE, MEDICAID | END | disposition disaster alternative care site (69) | LOC: GRAD 11:35 | DX: M25.572 Pain in left ankle and joints of left foot (principal) ==